=== PATIENT | male | born 1990 | race African-American/Black ===

== ENCOUNTER 2017-03-07 11:49 | Emergency (ER) | payer OTHER ==
[2017-03-07] MEDS ORDERED: Diazepam 5 MG TAB ONE (13:21)
[2017-03-07] MEDS ORDERED: Ketorolac Tromethamine 60 MG/2 ML VIAL ONE (13:21)
== END 2017-03-07 13:36 | disposition home or self-care (01) ==
LOC: ERS 11:49
DX: M62.838 Other muscle spasm (principal); F31.9 Bipolar disorder, unspecified; F41.9 Anxiety disorder, unspecified; F20.9 Schizophrenia, unspecified; F17.210 Nicotine dependence, cigarettes, uncomplicated
CPT/HCPCS: 96372; J1885